=== PATIENT | female | born 2000 | race Two or more races ===

== ENCOUNTER 2023-06-12 03:20 | Inpatient (IN) ==
[2023-06-12] MEDS ORDERED: Lactated Ringers 1000 ml BAG 1,000 ML IV ONE ×2 (04:15→14:33)
[2023-06-12] MEDS ORDERED: Buffered Lidocaine 1% SYRIN 1 ml INTRADERM ONE (04:15)
[2023-06-12] MEDS ORDERED: Lidocaine 1% VIAL 10 MG/ML 30 ML VIAL INJ PRN (04:15)
[2023-06-12 04:40] LABS: ABS Eosinophils 0.1 10^3/uL (0.0-0.5); ABS Lymphocytes 2.4 10^3/uL (1.0-4.8); ABS Monocytes 0.8 10^3/uL (0.0-0.9); ABS Neutrophils 6.8 10^3/uL (1.5-7.6); ABS Nucleated RBC 0.01 10^3/ul; Eosinophil % 1.2 %; Hemoglobin 12.4 g/dL (11.5-14.3); Lymphocyte % 23.7 %; Mean Corpuscular Hemoglobin 30.3 pg (27-33); Mean Corpuscular Hgb Conc 34.3 g/dL (31-36); Mean Corpuscular Volume 88.3 fL (80-97); Mean Platelet Volume 7.6 fL (7.5-11.2); Nucleated Red Blood Cells % 0.1 %/100WBC (0.0-0.8); Platelet Count 214 10^3/uL (150-450); Red Blood Count 4.08 10^6/uL (3.63-4.92); Red Cell Distribution Width 13.2 % (12-17); White Blood Count 10.2 10^3/uL (3.8-11.8)
[2023-06-12] MEDS ORDERED: Lactated Ringers 1000 ml BAG 1,000 ML IV SCH ×3 (05:00→19:00)
[2023-06-12 05:02] LABS: Urine Benzodiazepine Screen None Detected (None Detect); Urine Cannabinoids Screen None Detected (None Detect); Urine Opiates Screen None Detected (None Detect)
[2023-06-12] MEDS ORDERED: Morphine 10 MG/ML VIAL (1 ml) IV ONE (05:15)
[2023-06-12] MEDS ORDERED: Promethazine INJ(RESTRICTED) 25 MG/ML 1 ml VIAL IV ONE (05:16)
[2023-06-12] MEDS ORDERED: OBEPIDURAL (200 ML) 200 ML EPIDURAL ONE (11:16)
[2023-06-12] MEDS ORDERED: Lidocaine 1.5% EPI 1:200,000 30 ML SDV ONE (11:16)
[2023-06-12] MEDS ORDERED: Lidocaine 1% w EPI 1:200,000 SDV 10 ML VIAL ONE (11:18)
[2023-06-12 12:36] LABS: Urine Appearance Clear; Urine Bilirubin Negative (Negative); Urine Blood 2+ (Negative); Urine Color Straw; Urine Glucose Negative (Negative); Urine Ketones Negative (Negative); Urine Nitrite Negative (Negative); Urine Protein Negative (Negative); Urine Specific Gravity 1.003 (1.002-1.030); Urine Urobilinogen Negative (Negative)
[2023-06-12 12:43] LABS: Urine Bacteria 1+ (Absent); Urine Red Blood Cell Trace(0-2/hpf) (Absent); Urine Squamous Epithelial Cell Present (Absent); Urine White Blood Cell Trace(0-5/hpf) (Absent)
[2023-06-12] MEDS ORDERED: Phenylephrine 40 mcg/mL 10mL (400mcg) SYRINGE IV PUSH PRN ×2 (14:33)
[2023-06-12] MEDS ORDERED: Sodium Citrate/Citric Acid LIQ 15 ML UDC PO PRN (14:33)
[2023-06-12] MEDS ORDERED: OBEPIDURAL (200 ML) 200 ML EPIDURAL SCH (15:00)
[2023-06-12] MEDS ORDERED: Ampicillin ADVAN 2 GM in NS 0.9% 100 ml BAG 100 ML IVPB ONE ×2 (16:11→22:30)
[2023-06-12] MEDS ORDERED: Oxytocin in LR 20,000 MILLI.UNIT/1,000 ML BAG IV SCH (16:30)
[2023-06-12] MEDS ORDERED: Gentamicin ADULT 225 MG in NS 0.9% 100 ml BAG 100 ML IVPB ONE (16:30)
[2023-06-12] MEDS ORDERED: Witch Hazel PAD JAR TOPICAL PRN (18:30)
[2023-06-12] MEDS ORDERED: Glycerin ADULT 2.4 gm SUPP PR PRN (18:30)
[2023-06-13] MEDS: Dibucaine 1% OINT 28.35 GM TUBE PR PRN ×2 (00:17→18:32)
[2023-06-13 09:21] LABS: ABS Basophils 0.1 10^3/uL (0.0-0.1); ABS Lymphocytes 1.9 10^3/uL (1.0-4.8); ABS Monocytes 0.7 10^3/uL (0.0-0.9); ABS Neutrophils 13.6 10^3/uL (1.5-7.6); Eosinophil % 0.2 %; Hematocrit 32.6 % (35-45); Hemoglobin 11.2 g/dL (11.5-14.3); Lymphocyte % 11.8 %; Mean Corpuscular Hemoglobin 30.2 pg (27-33); Mean Corpuscular Hgb Conc 34.2 g/dL (31-36); Mean Corpuscular Volume 88.2 fL (80-97); Mean Platelet Volume 7.5 fL (7.5-11.2); Platelet Count 177 10^3/uL (150-450); Red Cell Distribution Width 13.6 % (12-17); White Blood Count 16.3 10^3/uL (3.8-11.8)
[2023-06-13] MEDS ORDERED: Ampicillin ADVAN 2 GM in NS 0.9% 100 ml BAG 100 ML IVPB ONE (10:13)
[2023-06-13] MEDS ORDERED: Measles, Mumps,Rubella VACC 0.5 ML/VIAL SUBCUT ONE (14:45)
[2023-06-13] MEDS ORDERED: Varicella Virus Vaccine Live 0.5 ML VIAL SUBCUT ONE (14:45)
[2023-06-14] MEDS: Dibucaine 1% OINT 28.35 GM TUBE PR PRN (08:46)
[2023-06-14 09:13] VITALS: BP 104/66
== END 2023-06-14 15:14 | disposition home or self-care (01) | DRG 560 ==
LOC: MCHOBOUT 03:20 → MCHOB 04:15
PROVIDERS: ADMIT Midwife; ATTEND Advanced Practice Midwife